=== PATIENT | female | born 1990 | race Caucasian/White ===

== ENCOUNTER 2022-12-23 08:04 | Outpatient (CLI) | payer BC, SELFPAY | END 2022-12-23 08:05 | disposition home or self-care (01) | PROVIDERS: Visit Provider Physician Assistant | DX: E66.9 Obesity, unspecified (principal) | CPT/HCPCS: 80061; 82947; 84443 ==

== ENCOUNTER 2023-07-11 08:09 | Outpatient (CLI) | payer BC, SELFPAY ==
--- NOTE | 2023-07-11 08:15 | CRLHL7_ITS ---
For Patients: As a result of the Century Cures Act, medical imaging exams and procedure reports are released immediately into your electronic medical record. You may view this report before your referring provider. If you have questions, please contact your health care provider. INDICATION: infertility, hx paraovarian cyst COMPARISON: none TECHNIQUE: 2D rfanklin scale and color Doppler images were acquired of the pelvis using a transabdominal and transvaginal approach. FINDINGS: Sonographic images demonstrate a normal size and smooth outer contour of the uterus. Uterus measures 7.8 cm in length by 3.6 cm in AP diameter by 4.4 cm in transverse dimension. The myometrium has a normal uniform echotexture. The endometrial lining appears normal and measures 7 mm in composite thickness. The right ovary measures 4.5 x 3.7 x 2.6 cm in size and the left ovary measures 4.6 x 2.1 x 3.4 cm. The ovaries demonstrate normal arterial and venous blood flow on color Doppler analysis. Circumscribed near anechoic right parovarian cyst measures 8.3 x 6.4 x 8.5 cm. No pelvic free fluid. IMPRESSION: Right parovarian cyst measures 8.3 x 6.4 x 8.5 cm. Endometrium measures 7 millimeters. Dictated by Alexi Gaines MD @ 07/11/2023 11:29:04 AM (Electronically Signed)
== END 2023-07-11 08:10 | disposition home or self-care (01) ==
LOC: US 08:11
PROVIDERS: Visit Provider Physician Assistant
DX: Z31.69 Encounter for other general counseling and advice on procreation (principal); N83.201 Unspecified ovarian cyst, right side; R93.89 Abnormal findings on diagnostic imaging of other specified body structures
CPT/HCPCS: 76830; 76856

== ENCOUNTER 2023-08-03 16:18 | Outpatient (CLI) | payer BC, SELFPAY | END 2023-08-03 16:19 | disposition home or self-care (01) | LOC: NFLDREF 08-04 06:31 | PROVIDERS: Visit Provider Physician Assistant | DX: Z31.69 Encounter for other general counseling and advice on procreation (principal) | CPT/HCPCS: 82670; 83001; 83498; 83520; 84146; 84443 ==

== ENCOUNTER 2023-08-16 07:49 | Outpatient (CLI) | payer BC, SELFPAY | END 2023-08-16 07:50 | disposition home or self-care (01) | LOC: NFLDREF 08-31 11:49 | PROVIDERS: Visit Provider Physician Assistant | DX: Z31.41 Encounter for fertility testing (principal) | CPT/HCPCS: 84144 ==

== ENCOUNTER 2023-08-31 07:20 | Day surgery (SDC) | payer BC, SELFPAY ==
[2023-08-31] VITALS (14 sets, daily range): BP systolic 116–133; BP diastolic 60–83; PULSE 53–71; RESP 14–18; TEMP 36.4–36.6; O2SAT 97–100; BMI 36.2
[2023-08-31 07:40] LABS: Ur HCG Qualitative* Negative (Negative)
[2023-08-31] MEDS: LACTATED RINGERS 1000 ML 1,000 ML 100 ML IV ×2 (07:50→10:46)
[2023-08-31] MEDS: SODIUM CHLORIDE 0.9 % (FLUSH) 10 ML SYRINGE IVF (07:50)
[2023-08-31 08:02] LABS: Hemoglobin* 12.6 gm/dL (12.0-16.0)
--- NOTE | 2023-08-31 08:28 | W.PM.H&PU ---
History & Physical Update History & Physical Update H&P Reviewed and patient assessed: No changes noted H&P Updates: Patient continues to be asymptomatic.
--- NOTE | 2023-08-31 09:08 | W.ANESCHARGE ---
Anesthesia Charges Start Date/Time Anesthesia Start Date: 08/31/23 Anesthesia Start Time: 08:43 Stop Date/Time Anesthesia Stop Date: 08/31/23 Anesthesia Stop Time: 10:27
[2023-08-31] MEDS: BUPIVACAINE 0.25 %/EPI 1:200K 30 ml INJECTION (09:10)
--- NOTE | 2023-08-31 09:51 | SUR.OPER ---
Addendum entered by Evita Crowder RN 08/31/23 12:18: The consent reads: Laparoscopic Ovarian Cystectomy (Right) and all other procedures as necessary Original Note: According to the patients consent and upon interviewing patient prior to procedure, the patient confirmed we will be removing the right fallopian tube and possibly the right ovary. Intraoperatively, Dr. Hardy stated, the ultrasound preoperatively read the Right side, However it is the Left side that is the defective side and we are removing the Left tube and Left Ovary. Dr. Hardy is aware that the side designated on the consent says Right and we are removing the Left side.
--- NOTE | 2023-08-31 10:22 | P.GYNPRC_ITS ---
Procedure Note Time Seen by Provider: 10:22 Date of procedure: 08/31/23 Pre-op diagnosis: Right para ovarian cyst measuring 8.3 x 6.4 x 8.5 cm Post-op diagnosis: other (1. Left paratubal cyst measuring approximately 10 cm 2. Endometriosis) Procedure: 1. Diagnostic laparoscopy 2. Left paratubal cystectomy 3. Left salpingectomy 4. Fulguration of endometrial implants Anesthesia: GETA and other (Local) Complications: None Surgeon: Mya Hardy MD Lawn Care Technician: Katelyn Brenner Estimated blood loss (mL): 15 IV fluids (mL): 900 Urine Output (mL): 350 Pathology: specimen obtained, sent to pathology (1. Left paratubal cyst 2. left fallopian tube ) Condition: stable Disposition: PACU Findings: EUA: Mons normal, clitoris normal, urethral meatus normal. Labia minora and majora normal in appearance bilaterally. Perineum and anus normal appearance. Vaginal introitus normal appearance. Bimanual exam reveals uterus to be soft, nontender, mobile, anteverted, of normal size and texture. Palpable midline mass noted. On laparoscopy: Liver normal appearing. The uterus, right fallopian tube, and right ovary were normal. Left ovary was normal. 11 cm paratubal cyst that included the majority of left fallopian tube. Cyst was simple and well circumscribed. Two endometrial implants noted left side of the anterior surface of the uterus. Procedure Description: Ai was taken to the operating room where general anesthetic was found to be adequate. She was placed in the dorsal lithotomy position and an exam under anesthesia was performed with findings stated above. She was then prepped and draped in a normal sterile manner. Rodriguez catheter placed to empty her bladder. Sponge stick was placed vaginally to act as uterine manipulator. Attention was then turned to performing the laparoscopic portion of the procedure. All incisions were injected with 0.25% Marcaine prior to incision. A vertical 5 mm infraumbilical incision was made with a scalpel and carried through to the underlying layer of fascia with a hemostat. The 5 mm Fios Kii trocar was assem bled with laparoscope within, and insufflator attached. While tenting up the abdomen manually, the trocar was passed through the anterior abdominal wall into the peritoneal cavity. Trocar was removed. Pneumoperitoneum was achieved. Survey of abdomen and pelvis revealed the above-noted findings.Two left trocars were placed under direct visualization. One was placed 3-4 finger breaths medial to the ischial crests and (11 mm) a 2nd was placed hands breath medial and 3 cm superior to lower quadrant port (5mm). A diagnostic laparoscopy was then performed with findings stated above. Ligasure was used to used to dissect left fallopian tube tissue off the paratubal cyst. Paratubal cyst was removed intact. Decision was made to perform left salpingectomy due to extensive damage from paratubal cyst and decreased risk of ectopic in that abnormal tube in the future. Left tube removed through left lower quadrant port. This port was extended to 15mm to fit the spleen bag. Paratubal cyst was placed into the spleen bag and removed intact though. Two endometrial implants noted left side of the anterior surface of the uterus/broad ligament. Biopsy deferred as they were close to large vessels and patient is asymptomatic. These lesions were fulgurated with electrocautery. Excellent hemostasis was noted of all pedicles. The trocars were then removed under direct visualization. The CO2 gas was allowed to escape the infraumbilical port prior to its removal. Fascial at the 15mm LLQ port was closed with 0-vicryl using Braxton-Lti suture closure system. The skin was reapproximated with 4- 0 monocryl. Two other incisions were reapproximated using 4-0 Monocryl in a running subcuticular manner. Exofin was applied at the port sites. The Rodriguez cath and uterine manipulator was removed. The patient tolerated this procedure well. Sponge, lap and instrument counts were correct x2 at the end of the procedure and the patient was taken to the recovery area in stable condition.
--- NOTE | 2023-08-31 10:31 | W.ANESCHARGE ---
Anesthesia Charges Start Date/Time Anesthesia Start Date: 08/31/23 Anesthesia Start Time: 08:43 Stop Date/Time Anesthesia Stop Date: 08/31/23 Anesthesia Stop Time: 10:27
[2023-08-31] MEDS: fentaNYL 100 MCG/2 ML inj 50 MCG IVP (10:45)
== END 2023-08-31 12:30 | disposition home or self-care (01) ==
PROVIDERS: Visit Provider Obstetrics & Gynecology
PROC: (CPT 58662; principal; 2023-08-31 08:45)
DX: N83.8 Other noninflammatory disorders of ovary, fallopian tube and broad ligament (principal); N80.00 Endometriosis of the uterus, unspecified; N80.3C2 Endometriosis of the left uterosacral ligament, unspecified depth
CPT/HCPCS: 58661; 58662; 00840; 36415; 81025; 85018; 86850; 86900; 86901; 88304; J1100; J2250; J2405; J2704; J2710; J3010; J7120

== ENCOUNTER 2025-01-31 08:30 | Outpatient (CLI) | payer BC, SELFPAY ==
[2025-02-02 04:56] LABS: HPV Source Cervix
[2025-02-04 16:18] LABS: Pap Test Digital Imaging Done
== END 2025-01-31 08:31 | disposition home or self-care (01) ==
PROVIDERS: Visit Provider Obstetrics & Gynecology
DX: Z11.51 Encounter for screening for human papillomavirus (HPV) (principal); Z12.4 Encounter for screening for malignant neoplasm of cervix
CPT/HCPCS: 87624; 87625; 88141; 88142; 88175